=== PATIENT | female | born 2000 | race African-American/Black ===

== ENCOUNTER 2022-05-06 09:05 | Observation (INO) | payer MEDICAID ==
[~2022-05-06] VITALS: Ht 165.1 cm; Wt 61.2 kg
[2022-05-06] MEDS ORDERED: TERBUTALINE SULFATE 1MG/ML VIAL SUBCUT PRN (12:15)
[2022-05-06] MEDS ORDERED: LACTATED RINGERS 1,000 ML IV SCH (12:15)
== END 2022-05-06 13:30 | disposition home or self-care (01) ==
LOC: 8 EST LDRP 09:05
PROVIDERS: ADMIT Obstetrics & Gynecology; ATTEND Obstetrics & Gynecology
DX: O26.893 Other specified pregnancy related conditions, third trimester (principal); M25.552 Pain in left hip; Z3A.36 36 weeks gestation of pregnancy
CPT/HCPCS: 59025; 76805; 76818; 96360; 96372; 99281; G0378; J3105

== ENCOUNTER 2022-06-06 22:19 | Inpatient (IN) | payer MEDICAID ==
[~2022-06-06] VITALS: Ht 167.6 cm; Wt 65.8 kg
[2022-06-06 23:46] LABS: CLARITY URINE CLEAR (CLEAR); COLOR URINE YELLOW (YELLOW); KETONES URINE NEGATIVE (NEGATIVE); LEUKOCYTE ESTERASE URINE TRACE (NEGATIVE); NITRITE URINE NEGATIVE (NEGATIVE); OCCULT BLOOD URINE NEGATIVE (NEGATIVE); PH URINE 6.5 (4.5-8.0); PROTEIN URINE NEGATIVE (NEGATIVE); SPECIFIC GRAVITY URINE 1.005 (1.005-1.030); UROBILINOGEN URINE 0.2 E.U./dL (0.2-1.0)
[2022-06-07] MEDS ORDERED: DEXT 5%/LACTATED RINGERS 1,000 ML IV SCH (01:15)
[2022-06-07] MEDS ORDERED: LACTATED RINGERS 1,000 ML IV SCH ×2 (01:15→03:30)
[2022-06-07] MEDS ORDERED: CARBOPROST TROMETHAMINE 250 MCG/ML AMPUL IM PRN (03:30)
[2022-06-07] MEDS ORDERED: MISOPROSTOL 100MCG TABLET VG PRN (03:30)
[2022-06-07] MEDS ORDERED: MISOPROSTOL 100MCG TABLET VG SCH (03:30)
[2022-06-07] MEDS ORDERED: AMPICILLIN 2GM in NS 100ML 100 ML IV NR (03:30)
[2022-06-07] MEDS ORDERED: BUTORPHANOL TARTRATE 2 MG/ML VIAL IV PRN (03:30)
[2022-06-07] MEDS ORDERED: NALOXONE HCL 0.4 MG/ML 1ML VIAL IV PRN (03:30)
[2022-06-07] MEDS ORDERED: METHYLERGONOVINE MALEATE 0.2 MG/ML IM PRN (03:30)
[2022-06-07] MEDS ORDERED: DIPHENHYDRAMINE 50MG/ML VIAL IM PRN (03:30)
[2022-06-07] MEDS ORDERED: RHO(D) IMMUNE GLOBULIN 300 MCG/SYR IM ONE (03:30)
[2022-06-07] MEDS ORDERED: NALOXONE HCL 0.4 MG/ML 1ML VIAL IM PRN (03:30)
[2022-06-07] MEDS ORDERED: LIDOCAINE HCL 1% 20ML VIAL (Pyxis) INJ INFIL SCH (03:30)
[2022-06-07] MEDS ORDERED: OXYTOCIN 30 UNITS/500ML NS PMX 500 ML IV SCH (03:30)
[2022-06-07] MEDS ORDERED: PROPOFOL 200MG/20ML VIAL IV ONE (05:23)
[2022-06-07] MEDS ORDERED: CEFAZOLIN SODIUM 1000MG/VIAL ONE (05:49)
[2022-06-07] MEDS ORDERED: FENTANYL CITRATE/PF 50MCG/ML 2ML VIAL ONE (05:49)
[2022-06-07] MEDS ORDERED: ONDANSETRON HCL 4MG/2ML INJ ONE (05:50)
[2022-06-07] MEDS ORDERED: SUCCINYLCHOLINE CHLORIDE 200MG/10ML IV ONE (05:50)
[2022-06-07 05:54] LABS: BASOPHILS % 0.4 % (0.0-2.0); EOSINOPHILS % 0.3 % (0.0-5.0); HEMATOCRIT. 40.6 % (36.0-48.0); HEMOGLOBIN. 13.8 g/dL (12.0-16.0); MEAN CORPUSCULAR HEMOGLOBIN 32.7 pg (28.0-32.0); MEAN CORPUSCULAR VOLUME 96.4 fL (81.0-99.0); MEAN PLATELET VOLUME 9.5 fl (7.4-10.4); MONOCYTES % 6.7 % (2.0-8.0); NEUTROPHILS % 54.6 % (40.0-76.0); PLATELET 160 x1000/uL (130-400); RED BLOOD CELL COUNT 4.21 mill/uL (4.2-5.4); RED CELL DISTRIBUTION WIDTH 15.1 % (11.6-14.6)
[2022-06-07 06:04] LABS: PARTIAL THROMBOPLASTIN TIME 25.4 sec (23.4-31.0); PROTHROMBIN TIME 10.3 sec (9.6-11.0)
[2022-06-07] MEDS ORDERED: MIDAZOLAM HCL 2 MG/2 ML VIAL ONE (06:07)
[2022-06-07] MEDS ORDERED: KETOROLAC 60MG/2ML VIAL IM ONE (06:08)
[2022-06-07] MEDS ORDERED: BISACODYL 10MG SUPP PR PRN (06:30)
[2022-06-07] MEDS ORDERED: HYDROMORPHONE HCL/PF 2MG/ML CPJ IM PRN (06:30)
[2022-06-07] MEDS ORDERED: DIPHENHYDRAMINE 25MG CAPSULE PO PRN (06:30)
[2022-06-07] MEDS ORDERED: RHO(D) IMMUNE GLOBULIN 300 MCG/SYR IM PRN (06:30)
[2022-06-07] MEDS ORDERED: IBUPROFEN 400MG TABLET PO PRN (06:30)
[2022-06-07] MEDS ORDERED: HYDROMORPHONE HCL/PF 2MG/ML CPJ IV PRN (07:00)
[2022-06-07 10:00] VITALS: BP 119/82
[2022-06-07] MEDS ORDERED: AMPICILLIN 1,000 MG in SODIUM CHLORIDE 0.9% 50 ML IV SCH (10:00)
[2022-06-07] MEDS: KETOROLAC 30MG/ML VIAL IV PRN ×2 (10:10→17:35)
[2022-06-07 11:00] VITALS: BP 115/78
[2022-06-07] MEDS ORDERED: NALOXONE HCL 0.4MG/ML VIAL IV PRN (13:15)
[2022-06-07 16:21] LABS: *AMPHETAMINES SCREEN URINE NEGATIVE (NEGATIVE); *BARBITURATES SCREEN URINE NEGATIVE (NEGATIVE); *BENZODIAZEPINES SCREEN URINE NEGATIVE (NEGATIVE); *COCAINE SCREEN URINE NEGATIVE (NEGATIVE); CANNABINOID URINE SCREEN NEGATIVE (NEGATIVE); METHADONE URINE SCREEN NEGATIVE (NEGATIVE); OPIATES URINE SCREEN NEGATIVE (NEGATIVE); PHENCYCLIDINE URINE SCREEN NEGATIVE (NEGATIVE)
[2022-06-07 17:45] VITALS: BP 105/69
[2022-06-07 19:29] LABS: HEPATITIS B SURFACE ANTIGEN REACTIVE PEND CONFIR
[2022-06-07 20:00] VITALS: BP 98/68
[2022-06-08] MEDS ORDERED: TETANUS, DIPHTHERIA, PERTUSSIS VAC/PF 0.5ML (>10YR OLD) IM ONE (03:00)
[2022-06-08 04:00] VITALS: BP 118/80
[2022-06-08 06:18] LABS: BASOPHILS % 0.3 % (0.0-2.0); EOSINOPHILS % 0.2 % (0.0-5.0); HEMATOCRIT. 37.1 % (36.0-48.0); HEMOGLOBIN. 12.4 g/dL (12.0-16.0); LYMPHOCYTES % 20.3 % (20.0-50.0); MEAN CORPUSCULAR HEMOGLOBIN 32.2 pg (28.0-32.0); MEAN CORPUSCULAR VOLUME 96.2 fL (81.0-99.0); MEAN PLATELET VOLUME 9.1 fl (7.4-10.4); MONOCYTES % 5.6 % (2.0-8.0); NEUTROPHILS % 73.6 % (40.0-76.0); PLATELET 171 x1000/uL (130-400); RED BLOOD CELL COUNT 3.86 mill/uL (4.2-5.4); RED CELL DISTRIBUTION WIDTH 15.2 % (11.6-14.6)
[2022-06-08] MEDS: FERROUS SULFATE 325MG TABLET PO SCH ×3 (07:30→17:49)
[2022-06-08 08:00] VITALS: BP_SYST 105; BP_SYST 117; BP_DIAS 66; BP_DIAS 73
[2022-06-08] MEDS: PRENATAL VIT/FE FUMARATE/FA TABLET PO SCH ×2 (09:00→09:04)
[2022-06-08] MEDS: IBUPROFEN 800MG TABLET PO PRN ×2 (09:05→17:49)
[2022-06-08 16:55] VITALS: BP 116/74
[2022-06-08 20:00] VITALS: BP 124/82
[2022-06-09 04:00] VITALS: BP 118/64
[2022-06-09 08:00] VITALS: BP 108/80
[2022-06-12 04:12] LABS: HBSAG CONFIRMATION Positive (.); HBSAG SCREEN Confirm. indicated (Negative)
== END 2022-06-09 11:15 | disposition home or self-care (01) | DRG 540 ==
LOC: OBSVTOIN 22:19 → 8 EST LDRP 22:19 → 8EST 06-07 12:59
PROVIDERS: ADMIT Obstetrics & Gynecology; ATTEND Obstetrics & Gynecology
PROC: 10D00Z1 Extraction of Products of Conception, Low, Open Approach (ICD-10-PCS; principal; 2022-06-07)
DX: O76 Abnormality in fetal heart rate and rhythm complicating labor and delivery (principal); O99.12 Other diseases of the blood and blood-forming organs and certain disorders involving the immune mechanism complicating childbirth; O34.13 Maternal care for benign tumor of corpus uteri, third trimester; D25.1 Intramural leiomyoma of uterus; D25.2 Subserosal leiomyoma of uterus; D72.829 Elevated white blood cell count, unspecified; Z20.822 Contact with and (suspected) exposure to COVID-19; Z3A.38 38 weeks gestation of pregnancy; Z37.0 Single live birth
CPT/HCPCS: 36415; 76805; 76818; 80305; 81003; 85025; 86592; 86703; 86762; 86850; 86900; 87340; 87426; 88307; 90715; 99281; G0378; J0290; J0330; J0690; J1170; J1885; J2250; J2405; J2704; J3010; J7120; J7121; J2590